=== PATIENT | female | born 1990 | race Caucasian/White ===

== ENCOUNTER 2024-03-19 10:34 | Emergency (ER) | payer OTHER ==
--- NOTE | 2024-03-19 11:29 | RAD REPORT ---
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 Color and spectral Doppler evaluation of the ovaries was performed. COMPARISON: No prior exam. FINDINGS: UTERUS AND CERVIX: The uterus measures 10.5 cm in length. The myometrium is unremarkable. Few nabothi an cysts noted at the cervix. No masses seen The endometrium is normal, 0.4 cm in thickness. No evidence of a gestational sac noted. RIGHT OVARY: Normal The right ovary measures 3.0 x 1.9 x 1.9 cm. Normal color and spectral Doppler evaluation of the right ovary.. LEFT OVARY: Normal The left ovary measures 2.2 x 1.5 x 1.7 cm. Normal color and spectral Doppler evaluation of the left ovary. No suspicious paraovarian or adnexal lesions. FREE FLUID: No free fluid. IMPRESSION: No evidence of an infiltrate uterine or extrauterine . Clinical follow-up and correlation wi th serial beta hCG levels is recommended. No other suspicious pelvic pathology.
--- NOTE | 2024-03-19 11:29 | RAD REPORT ---
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 Color and spectral Doppler evaluation of the ovaries was performed. COMPARISON: No prior exam. FINDINGS: UTERUS AND CERVIX: The uterus measures 10.5 cm in length. The myometrium is unremarkable. Few nabothi an cysts noted at the cervix. No masses seen The endometrium is normal, 0.4 cm in thickness. No evidence of a gestational sac noted. RIGHT OVARY: Normal The right ovary measures 3.0 x 1.9 x 1.9 cm. Normal color and spectral Doppler evaluation of the right ovary.. LEFT OVARY: Normal The left ovary measures 2.2 x 1.5 x 1.7 cm. Normal color and spectral Doppler evaluation of the left ovary. No suspicious paraovarian or adnexal lesions. FREE FLUID: No free fluid. IMPRESSION: No evidence of an infiltrate uterine or extrauterine . Clinical follow-up and correlation wi th serial beta hCG levels is recommended. No other suspicious pelvic pathology.
[2024-03-19 12:03] LABS: Absolute Eosinophils 0.2 K/uL (0-0.5); Absolute Lymphocytes (CBC) 2.2 K/uL (0.7-4.9); Absolute Monocytes 0.5 K/uL (0.1-1.3); Absolute Neutrophil 4.9 K/uL (1.8-8.0); Basophils % 0.6 % (0-1.3); Eosinophils % 2.7 % (0-4.4); Hematocrit 42.3 % (36.0-45.0); Hemoglobin 14.2 g/dL (12.0-15.0); Lymphocytes % 28.3 % (15.3-44.8); MCH 32.2 pg (27.0-35.0); MCHC 33.7 g/dL (32.0-36.0); MCV 95.7 fL (80-100); MPV 10.4 fL (7.6-11.3); Neutrophils % 62.4 % (41.7-73.7); Platelets 209 thou/uL (152-406); RBC Red Blood Cell Count 4.42 M/uL (3.86-4.86); Red Cell Distribution Width 12.5 % (12.1-15.2)
[2024-03-19 12:45] LABS: Specific Gravity 1.013 (1.005-1.030)
[2024-03-19 12:47] LABS: Specific Gravity 1.013 (1.005-1.030); Sqamous Epithelial <5 /HPF (None Seen); Urine Bacteria None Seen /HPF (<20); Urine Bilirubin NEGATIVE (Negative); Urine Blood 3+ (OVER) (Negative); Urine Clarity Extremely Turbid (Clear); Urine Color Light-Yellow (Yellow); Urine Crystals Unidentified Few /HPF (None Seen); Urine Culture Reflex Order NOT NEEDED; Urine Glucose NEGATIVE (Negative); Urine Ketones NEGATIVE (Negative); Urine Microscopic Reflex YN ORDER UMIC; Urine Mucus Slight /HPF (None Seen); Urine Nitrite NEGATIVE (Negative); Urine Protein NEGATIVE (Negative); Urine RBC >50 /HPF (None Seen); Urine Urobilinogen Normal (Normal); Urine WBC <5 /HPF (<5); Urine WBC Clump Rare /HPF (None Seen); Urine Yeast (Budding) Trace /HPF (None Seen)
--- NOTE | 2024-03-19 13:45 | EDPHYS ---
Physician Documentation [facility] Name: Suzi Tripp Age: 33 yrs Sex: Female : 1990 Arrival Date: 03/19/2024 Time: 10:34 Bed 6 Private MD: ED Physician Jose Salguero HPI: 03/19 10:50 This 33 yrs old Female presents to ER via Unassigned with complaints of [id number], rn Vaginal Bleeding, Abdominal Cramping. 10:50 Onset: The symptoms/episode began/occurred 5 day(s) ago. Modifying factors: The rn symptoms are alleviated by nothing, the symptoms are aggravated by nothing. The patient has experienced similar episodes in the past. at 8 weeks , presents with vaginal bleeding and cramps. No trauma. . 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 - Infectious Disease History:: Denies. - Family history:: not pertinent. - Social history:: Smoking status: Patient denies any tobacco usage or history of. - Hospitalizations: : No recent hospitalization is reported. ROS: 10:50 Constitutional: Negative for fever, chills, and weight loss, Cardiovascular: Negative rn for chest pain, palpitations, and edema, Respiratory: Negative for shortness of breath, cough, wheezing, and pleuritic chest pain, Abdomen/GI: + abd cramps Back: Negative for injury and pain, : + vaginal bleeding Exam: 10:50 Constitutional: This is a well developed, well nourished patient who is awake, alert, rn and in no acute distress. Abdomen/GI: soft, non-tender Neuro: Awake and alert, GCS 15 Vital Signs: 12:14 BP 106 / 75; Pulse 67; Resp 16 S; Temp 98.8(O); Weight 84.37 kg (M); Height 5 ft. 0 in. kc6 (R); Pain 0/10; 14:01 BP 118 / 77; Pulse 85; Resp 17 S; Pulse Ox 100% on R/A; kc6 12:14 Body Mass Index 36.33 (84.37 kg, 152.4 cm) 6 12:14 Pain Scale: Adult kc6 MDM: 10:42 Medical Screening Exam initiated rn 13:42 Differential diagnosis: urinary tract infection, Patient most likely with miscarriage rn given photo that she showed me from home that looked like products of conception. Beta-hCG only 7. Ultrasound does not show intrauterine or extrauterine . 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 Data reviewed: vital signs, nurses notes, lab test result(s), radiologic studies, ultrasound, and as a result, I will discharge patient. Counseling: I had a detailed discussion with the patient and/or guardian regarding the historical points, exam findings, and any diagnostic results supporting the discharge/admit diagnosis, lab results, radiology results, the need for outpatient follow up, to return to the emergency department if symptoms worsen or persist or if there are any questions or concerns that arise at home. Special discussion: I discussed with the patient/guardian in detail that at this point there is no indication for admission to the hospital. It is understood, however, that if the symptoms persist or worsen the patient needs to return immediately for re-evaluation. 03/19 10:42 Order name: Abo/rh Typing; Complete Time: 13:07 rn 03/19 10:42 Order name: Basic Metabolic Panel; Complete Time: 13:07 rn 03/19 10:42 Order name: CBC with Diff; Complete Time: 12:15 rn 03/19 10:42 Order name: Test, Urine; Complete Time: 13:07 rn 03/19 10:42 Order name: Quantitative Hcg; Complete Time: 13:07 rn 03/19 10:42 Order name: Urinalysis w/ reflexes; Complete Time: 13:07 rn 03/19 10:42 Order name: US Transvaginal Ob; Complete Time: 11:35 rn 03/19 11:04 Order name: Pelvis Complete; Complete Time: 11:35 EDMS 03/19 10:42 Order name: IV Saline Lock; Complete Time: 11:54 rn 03/19 10:42 Order name: Labs collected and sent; Complete Time: 11:54 rn 03/19 10:42 Order name: NPO; Complete Time: 12:06 rn Administered Medications: No medications were administered Disposition Summary: 03/19/24 13:44 Discharge Ordered Notes: Location: Home rn Problem: new rn Symptoms: have improved rn Condition: Stable rn Diagnosis - Threatened rn Followup: rn - With: Private Physician - When: As needed - Reason: Recheck today's complaints, Re-evaluation by your physician Discharge Instructions: - Discharge Summary Sheet rn - Miscarriage rn - Threatened Miscarriage rn - Vaginal Bleeding During , First Trimester rn Forms: - Medication Reconciliation Form rn - Antibiotic apple turner - Prescription Opioid Use rn - Patient Portal Instructions rn - Leadership Thank You Letter rn - Work release form cm10 Signatures: Dispatcher [employer] EDMS Jose Salguero MD MD rn Lewis, Lynsay RN RN ll1 Mitzy Beth RN RN kc6
--- NOTE | 2024-03-19 13:45 | ER ---
Nurse's Notes [facility] Name: Suzi Tripp Age: 33 yrs Sex: Female : 1990 Arrival Date: 03/19/2024 Time: 10:34 Bed 6 Private MD: Diagnosis: Threatened Presentation: 03/19 11:00 Chief complaint: Patient states: Approximately 8 weeks . G3, P2. Vaginal ll1 bleeding for 5 days. Coronavirus screen: Client denies travel out of the [place] in the last 14 days. At this time, the client does not indicate any symptoms associated with coronavirus-19. Ebola Screen: Patient denies travel to an Ebola-affected area in the 21 days before illness onset. Initial Sepsis Screen: Does the patient meet any 2 criteria? No. Patient's initial sepsis screen is negative. Does the patient have a suspected source of infection? No. Patient's initial sepsis screen is negative. Risk Assessment: Do you want to hurt yourself or someone else? Patient reports no desire to harm self or others. Onset of symptoms was March 15, 2024. 11:00 Method Of Arrival: Ambulatory ll1 11:00 Acuity: PILO 3 ll1 Triage Assessment: 11:00 General: Appears uncomfortable, Behavior is calm, cooperative, appropriate for age. ll1 Pain: Complains of pain in pelvis Quality of pain is described as aching, crampy. : Reports pain in suprapubic area vaginal bleeding that is moderate flow. 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 - Infectious Disease History:: Denies. - Family history:: not pertinent. - Social history:: Smoking status: Patient denies any tobacco usage or history of. - Hospitalizations: : No recent hospitalization is reported. Screenin:16 [facility] ED Fall Risk Assessment (Adult) History of falling in the last 3 months, kc6 including since admission No falls in past 3 months (0 pts) Confusion or Disorientation No (0 pts) Intoxicated or Sedated No (0 pts) Impaired Gait No (0 pts) Mobility Assist Device Used No (0 pt) Altered Elimination No (0 pt) Score/Fall Risk Level 0 - 2 = Low Risk Oriented to surroundings, Maintained a safe environment. Abuse screen: Denies threats or abuse. Denies injuries from another. Nutritional screening: No deficits noted. Tuberculosis screening: No symptoms or risk factors identified. Assessment: 12:17 General: Appears in no apparent distress. comfortable, well groomed, well developed, kc Behavior is calm, cooperative, appropriate for age. Pain: Complains of pain in pelvis Quality of pain is described as crampy, dull. Neuro: Level of Consciousness is awake, alert, obeys commands, Oriented to person, place, time, situation, Appropriate for age. Cardiovascular: Capillary refill < 3 seconds. Respiratory: Airway is patent Trachea midline Respiratory effort is even, unlabored, Respiratory pattern is regular, symmetrical. GI: No signs and/or symptoms were reported involving the gastrointestinal system. : Reports cramping, vaginal bleeding that is bright red, with clots, heavy flow. EENT: No signs and/or symptoms were reported regarding the EENT system. Derm: No signs and/or symptoms reported regarding the dermatologic system. Skin is intact, is healthy with good turgor, Skin is pink, warm \T\ dry. Musculoskeletal: No signs and/or symptoms reported regarding the musculoskeletal system. Circulation, motion, and sensation intact. Capillary refill < 3 seconds, Range of motion: intact in all extremities. 13:17 Reassessment: Patient appears in no apparent distress at this time. No changes from [facility] previously documented assessment. Patient and/or family updated on plan of care and expected duration. Pain level reassessed. Patient is alert, oriented x 3, equal unlabored respirations, skin warm/dry/pink. Vital Signs: 12:14 BP 106 / 75; Pulse 67; Resp 16 S; Temp 98.8(O); Weight 84.37 kg (M); Height 5 ft. 0 in. kc (R); Pain 0/10; 14:01 BP 118 / 77; Pulse 85; Resp 17 S; Pulse Ox 100% on R/A; kc6 12:14 Body Mass Index 36.33 (84.37 kg, 152.4 cm) [facility] 12:14 Pain Scale: Adult kc6 ED Course: 10:41 Patient arrived in ED. mg5 10:42 Jose Salguero MD is Attending Physician. rn 10:50 Patient's name was called from ER lobby. No response. hb 11:01 Triage completed. ll1 11:07 US Transvaginal Ob In Process Unspecified. EDMS 11:08 Pelvis Complete In Process Unspecified. EDMS 12:12 Mitzy Beth, RN is Primary Nurse. kc6 12:16 Patient has correct armband on for positive identification. Bed in low position. Call kc6 light in reach. Side rails up X 1. Pulse ox on. NIBP on. Door closed. Noise minimized. Lights dimmed. Pillow given. 12:16 Inserted saline lock: 20 gauge in left antecubital area, using aseptic technique. Blood kc6 collected. Flushed with 10 mL NS. Patient maintains SpO2 saturation greater than 95% on room air. 12:17 Arm band placed on. kc6 12:39 Test, Urine Sent. kc6 12:39 Urinalysis w/ reflexes Sent. kc6 14:08 Provided Education on: Follow-up instructions. cm10 14:08 No provider procedures requiring assistance completed. IV discontinued, intact, cm10 bleeding controlled, No redness/swelling at site. Pressure dressing applied. Administered Medications: No medications were administered Medication: 14:07 VIS not applicable for this client. cm10 Outcome: 13:44 Discharge ordered by . rn 14:08 Discharged to home ambulatory, cm10 14:08 Condition: good 14:08 Discharge instructions given to patient, Instructed on discharge instructions, follow up and referral plans. Demonstrated understanding of instructions, follow-up care, 14:09 Patient left the ED. cm10 Signatures: Dispatcher [employer] EDMS Jose Salguero MD MD rn Baxter, Heather, RN RN hb Lewis, Lynsay, RN RN ll1 Mitzy Beth RN RN kc6 Martinez, Clarissa, RN RN cm10 Gardner, Madison mg5 Corrections: (The following items were deleted from the chart) 14:08 14:08 Verified cm10 cm10
[2024-03-19 16:13] VITALS: TEMP 98.8
[2024-03-19 16:14] VITALS: BP 118/77; O2SAT 100
== END 2024-03-19 14:09 | disposition home or self-care (01) ==
LOC: ER 10:34
DX: O20.0 Threatened abortion (principal)
CPT/HCPCS: 36415; 76817; 76856; 80048; 81001; 81025; 84702; 85025; 86900; 86901; 99284

== ENCOUNTER 2024-06-29 10:41 | Emergency (ER) | payer OTHER ==
[2024-06-29] MEDS ORDERED: NA CHLORIDE 0.9% 1,000 ML ONE (12:12)
[2024-06-29] MEDS ORDERED: MORPHINE 4 MG/ML SYR ONE (12:12)
[2024-06-29] MEDS ORDERED: ONDANSETRON 4 MG/2 ML VIAL ONE (12:12)
[2024-06-29 12:40] LABS: Specific Gravity 1.023 (1.005-1.030)
[2024-06-29 12:44] LABS: Specific Gravity 1.023 (1.005-1.030); Urine Bacteria None Seen /HPF (<20); Urine Bilirubin NEGATIVE (Negative); Urine Blood 3+ (Negative); Urine Clarity Extremely Turbid (Clear); Urine Color Dark-Brown (Yellow); Urine Culture Reflex Order REFLEXED; Urine Glucose NEGATIVE (Negative); Urine Ketones NEGATIVE (Negative); Urine Microscopic Reflex YN ORDER UMIC; Urine Mucus 4+ /HPF (None Seen); Urine Nitrite NEGATIVE (Negative); Urine Protein 2+ (Negative); Urine RBC >50 /HPF (None Seen); Urine Urobilinogen Normal (Normal); Urine WBC >50 /HPF (<5); Urine WBC Clump Many /HPF (None Seen); Urine pH 5.5 (5.0-7.0)
[2024-06-29 12:46] LABS: Absolute Basophils 0.1 K/uL (0-0.5); Absolute Eosinophils 0.3 K/uL (0-0.5); Absolute Lymphocytes (CBC) 2.1 K/uL (0.7-4.9); Absolute Monocytes 0.7 K/uL (0.1-1.3); Absolute Neutrophil 11.5 K/uL (1.8-8.0); Basophils % 0.6 % (0-1.3); Eosinophils % 1.7 % (0-4.4); Hematocrit 41.9 % (36.0-45.0); Hemoglobin 14.3 g/dL (12.0-15.0); Lymphocytes % 14.4 % (15.3-44.8); MCH 31.9 pg (27.0-35.0); MCHC 34.2 g/dL (32.0-36.0); MCV 93.3 fL (80-100); MPV 10.9 fL (7.6-11.3); Monocytes % 4.7 % (3.3-12.3); Neutrophils % 78.6 % (41.7-73.7); Platelets 223 thou/uL (152-406); RBC Red Blood Cell Count 4.49 M/uL (3.86-4.86); Red Cell Distribution Width 12.4 % (12.1-15.2)
[2024-06-29 12:56] LABS: Albumin 3.7 g/dL (3.4-5.0); Anion Gap 6.9 mEq/L (5.0-15.0); Bilirubin Total 0.9 mg/dL (0.2-1.0); Globulin 3.8 g/dL (2.3-3.5); Potassium 3.9 mEq/L (3.5-5.1); Protein, Total 7.5 g/dL (6.4-8.2)
[2024-06-29] MEDS ORDERED: CIPROFLOXACIN HCL 500 MG TAB ONE (13:26)
[2024-06-29] MEDS ORDERED: CEFTRIAXONE 1000 MG/VIAL ONE (13:26)
--- NOTE | 2024-06-29 13:42 | RAD REPORT ---
EXAMINATION: Pelvis Complete CLINICAL INDICATION: Vaginal bleeding TECHNIQUE: Real-time ultrasonography of the pelvis was performed transabdominally.. Color and spectra l Doppler evaluation of the ovaries was performed. COMPARISON: No prior exam. Findings: The uterus measures 10 x 6 x 6 cm. Endometrial stripe normal thickness. Punctate calcification is pre sent within the myometrium. A fibroid is not seen. Nabothian cysts are present within the cervix. Right ovary normal in size and echotexture. Left ovary normal in size and echotexture. Ovaries demonstrate blood flow. Right and left adnexa unremarkable No significant free fluid IMPRESSION: No significant abnormalities displayed
--- NOTE | 2024-06-29 13:42 | RAD REPORT ---
EXAMINATION: Transvaginal Study Probe CLINICAL INDICATION: Vaginal bleeding TECHNIQUE: Real-time ultrasonography of the pelvis was performed transvaginally. Color and spectral D oppler evaluation of the ovaries was performed. COMPARISON: No prior exam. FINDINGS: The uterus measures 10 x 6 x 6 cm. Endometrial stripe normal thickness. Punctate calcification is pre sent within the myometrium. A fibroid is not seen. Nabothian cysts are present within the cervix. Right ovary normal in size and echotexture. Left ovary normal in size and echotexture. Right and left adnexa unremarkable No significant free fluid IMPRESSION: No significant abnormalities displayed
--- NOTE | 2024-06-29 14:03 | RAD REPORT ---
EXAMINATION: CT ABDOMEN AND PELVIS WITH CONTRAST CLINICAL INDICATION: Abdominal pain TECHNIQUE: CT abdomen and pelvis was performed, after the administration of 100 cc Isovue-300.. Sagit luz and coronal reconstructions were obtained. One or more of the following dose reduction techniques were used: Automated exposure control, adjustment of the mA and kV according to patient si ze, and iterative reconstruction. Unless otherwise specified, incidental findings do not require dedicated imaging follow-up. [id number]. Oral contrast was not given which limits evaluation of bowel and appendix. COMPARISON: .None FINDINGS: Small hepatic cyst. Borderline fatty infiltration liver. The spleen, pancreas, adrenals and kidneys appear unremarkable No evidence of diverticulitis. Normal appendix. 1.9 cm left ovarian follicle. No significant free fluid. Small umbilical hernia contains fat : IMPRESSION: No acute abnormality displayed
--- NOTE | 2024-06-29 14:39 | EDPHYS ---
Physician Documentation [facility] Name: Suzi Tripp Age: 34 yrs Sex: Female : 1990 Arrival Date: 06/29/2024 Time: 10:41 Bed 19 Private MD: RYAN Physician Yogi Bragg HPI: 06/29 13:27 This 34 yrs old Female presents to ER via Ambulatory with complaints of hang Abdominal Pain, Vaginal Bleeding. 13:29 The patient presents with flank pain, on the left, pelvic pain, the pain radiates to hang the left lower quadrant, urinary symptoms, frequency, hematuria, urgency, vaginal bleeding that is moderate. Onset: The symptoms/episode began/occurred 2 day(s) ago. Modifying factors: The symptoms are alleviated by nothing, the symptoms are aggravated by nothing. Associated signs and symptoms: Pertinent positives: dysuria, vaginal bleeding. Severity of symptoms: At their worst the symptoms were moderate, in the emergency department the symptoms are unchanged. The patient is sexually active, reportedly has a single partner. The patient has not experienced similar symptoms in the past. Historical: - Allergies: 11:10 No Known Allergies; hb - Home Meds: 11:10 None [Active]; hb - PMHx: 11:10 None; hb - PSHx: 11:10 section; hb - Immunization history:: Adult Immunizations up to date. - Infectious Disease History:: Denies. - Social history:: Smoking status: Patient reports the use of cigarette tobacco products. - Family history:: not pertinent. ROS: 13:29 Constitutional: Negative for fever, chills, and weight loss, Eyes: Negative for injury, hang pain, redness, and discharge, ENT: Negative for injury, pain, and discharge, Neck: Negative for injury, pain, and swelling, Cardiovascular: Negative for chest pain, palpitations, and edema, Respiratory: Negative for shortness of breath, cough, wheezing, and pleuritic chest pain, Back: Negative for injury and pain, MS/Extremity: Negative for injury and deformity, Skin: Negative for injury, rash, and discoloration, Neuro: Negative for headache, weakness, numbness, tingling, and seizure, Psych: Negative for depression, anxiety, suicide ideation, homicidal ideation, and hallucinations, Allergy/Immunology: Negative for hives, rash, and allergies, Endocrine: Negative for neck swelling, polydipsia, polyuria, polyphagia, and marked weight changes, Hematologic/Lymphatic: Negative for swollen nodes, abnormal bleeding, and unusual bruising, 13:29 Abdomen/GI: Positive for abdominal pain, of the left lower quadrant, 13:29 : Positive for vaginal bleeding, Exam: 13:29 Constitutional: This is a well developed, well nourished patient who is awake, alert, hang and in no acute distress. Head/Face: Normocephalic, atraumatic. Eyes: Pupils equal round and reactive to light, extra-ocular motions intact. Lids and lashes normal. Conjunctiva and sclera are non-icteric and not injected. Cornea within normal limits. Periorbital areas with no swelling, redness, or edema. ENT: Nares patent. No nasal discharge, no septal abnormalities noted. Tympanic membranes are normal and external auditory canals are clear. Oropharynx with no redness, swelling, or masses, exudates, or evidence of obstruction, uvula midline. Mucous membranes moist. Neck: Trachea midline, no thyromegaly or masses palpated, and no cervical lymphadenopathy. Supple, full range of motion without nuchal rigidity, or vertebral point tenderness. No Meningismus. Chest/axilla: Normal chest wall appearance and motion. Nontender with no deformity. No lesions are appreciated. Cardiovascular: Regular rate and rhythm with a normal S1 and S2. No gallops, murmurs, or rubs. Normal PMI, no JVD. No pulse deficits. Respiratory: Lungs have equal breath sounds bilaterally, clear to auscultation and percussion. No rales, rhonchi or wheezes noted. No increased work of breathing, no retractions or nasal flaring. Back: No spinal tenderness. No costovertebral tenderness. Full range of motion. Skin: Warm, dry with normal turgor. Normal color with no rashes, no lesions, and no evidence of cellulitis. MS/ Extremity: Pulses equal, no cyanosis. Neurovascular intact. Full, normal range of motion., bilateral aka Neuro: Awake and alert, GCS 15, oriented to person, place, time, and situation. Cranial nerves II-XII grossly intact. Motor strength 5/5 in all extremities. Sensory grossly intact. Cerebellar exam normal. Normal gait. Psych: Awake, alert, with orientation to person, place and time. Behavior, mood, and affect are within normal limits. 13:29 Abdomen/GI: Inspection: abdomen appears normal, Bowel sounds: normal, Palpation: moderate abdominal tenderness, in the left lower quadrant, Liver: no appreciated palpable abnormalities, Hernia: not appreciated, Vital Signs: 11:07 BP 115 / 86; Pulse 83; Resp 16; Temp 98.3; Pulse Ox 100% on R/A; Weight 85.73 kg; hb Height 5 ft. 0 in. ; Pain 8/10; 15:00 BP 114 / 86; Pulse 82; Resp 16; Pulse Ox 95% on R/A; kc6 11:07 Body Mass Index 36.91 (85.73 kg, 152.4 cm) hb 11:07 Pain Scale: Adult hb MDM: 10:51 Medical Screening Exam initiated hang 13:33 Differential diagnosis: dysmenorrhea, endometriosis, malignancy, menorrhea, nonspecific hang abdominal pain, uterine fibroids, urinary tract infection. Data reviewed: vital signs, nurses notes, lab test result(s), radiologic studies, CT scan, ultrasound. Consideration of Admission/Observation Escalation of care including admission/observation considered. I considered the following discharge prescriptions or medication management in the emergency department Medications were administered in the Emergency Department. See MAR. Independent interpretation of the following test(s) in the Emergency Department CT Scan: My interpretation is ct abd/pelvis. Test considered but Not performed: MRI: no mri pelvis. Historians other than the Patient: Spouse/Significant Other: well informed. Care significantly affected by the following chronic conditions: none. 06/29 10:51 Order name: CBC with Diff; Complete [facility]: 13:20 [facility] 06/29 10:51 Order name: CMP; Complete Time: 13:20 [facility] 06/29 10:51 Order name: Lipase; Complete Time: 13:20 [facility] 06/29 10:51 Order name: Test, Urine; Complete Time: 13:20 [facility] 06/29 10:51 Order name: Urinalysis w/ reflexes; Complete Time: 13:20 [facility] 06/29 12:48 Order name: Urine Culture [facility] 06/29 12:11 Order name: US Transvaginal Study (Probe); Complete Time: 14:38 [facility] 06/29 12:19 Order name: Pelvis Complete; Complete Time: 14:38 [facility] 06/29 13:29 Order name: Abdomen ; Complete Time: 14:38 [facility] 06/29 10:51 Order name: IV Saline Lock; Complete Time: 12:36 hang 06/29 10:51 Order name: Labs collected and sent; Complete Time: 12:36 hang Administered Medications: 12:36 Drug: Ondansetron IVP 4 mg IVP once; over 2 minutes Route: IVP; Site: right antecubital;6 13:38 Follow up: Response: No adverse reaction [facility] 12:36 Drug: morphine IVP or IV 4 mg IVP once over 4 mins Route: IVP; Infused Over: 4 mins; 6 Site: right antecubital; 13:37 Follow up: Response: No adverse reaction; Pain is decreased; RASS: Alert and Calm (0) [facility] 12:36 Drug: NS 0.9% IV 1000 ml IV at 1 bolus Per protocol; to be given as a bolus over 60 kc6 minutes Route: IV; Rate: 1 bolus; Site: right antecubital; 15:29 Follow up: Response: No adverse reaction; IV Status: Completed infusion; IV Intake: db 1000ml 13:32 Drug: Rocephin IV 1 grams IV at per protocol once; Given slow IV push per pharmacy kc6 instructions Route: IV; Rate: per protocol; Site: right antecubital; 15:29 Follow up: Response: No adverse reaction; IV Status: Completed infusion db 13:32 Drug: Ciprofloxacin PO 500 mg PO once Route: PO; [facility] 15:29 Follow up: Response: No adverse reaction db 15:05 Drug: Cefdinir PO 300 mg PO once Route: PO; db 15:29 Follow up: Response: No adverse reaction db Disposition Summary: 06/29/24 14:39 Discharge Ordered Notes: Location: Home hang Problem: new hang Symptoms: have improved hang Condition: Stable hang Diagnosis - Abnormal uterine and vaginal bleeding, unspecified hang - Dysmenorrhea, unspecified hang - UTI/ Urinary tract infection, site not specified hang - Pelvic and perineal pain hang Followup: hang - With: Private Physician - When: 2 - 3 days - Reason: Recheck today's complaints, Continuance of care, Re-evaluation by your physician Followup: hang - With: Hien Bell MD - When: 2 - 3 days - Reason: Recheck today's complaints, Re-evaluation by your physician Discharge Instructions: - Discharge Summary Sheet hang - Abnormal Uterine Bleeding hang - Dysmenorrhea hang - Dysuria hang - Pelvic Pain, Female hang - Urinary Tract Infection, Adult hang - Urinary Tract Infection, Adult, [id number] Forms: - Medication Reconciliation Form hang - Antibiotic Education hang - Prescription Opioid Use hang - Patient Portal Instructions [facility] - Leadership Thank You Letter [facility] Prescriptions: - cefdinir 300 mg Oral capsule - take 1 capsule ORAL route 2 times per day for 5 days; 10 capsule; Refills: 0, [facility] Product Selection Permitted - Pyridium 200 mg Oral Tablet - take 1 tablet ORAL route every 8 hours for 3 days; 9 tablet; Refills: 0, [facility] Product Selection Permitted - Cipro 500 mg Oral Tablet - take 1 tablet ORAL route every 12 hours for 7 days; 14 tablet; Refills: 0, [facility] Product Selection Permitted - Diclofenac Sodium 75 mg Oral tablet, delayed release (enteric coated) - take 1 tablet ORAL route 2 times per day; 20 tablet; Refills: 0, Product [facility] Selection Permitted Signatures: Dispatcher [employer] Yogi Culver MD MD cha Baxter, Heather, RN RN Mitzy Beth RN RN kc6 Kamilla Huang RN RN db Corrections: (The following items were deleted from the chart) 13:21 13:21 Clem Protocol+CT.RAD.BRZ ordered. ELINA ANTOINE
--- NOTE | 2024-06-29 14:39 | ER ---
Nurse's Notes [facility] Name: Suzi Tripp Age: 34 yrs Sex: Female : 1990 Arrival Date: 06/29/2024 Time: 10:41 Bed 19 Private MD: Diagnosis: Abnormal uterine and vaginal bleeding, unspecified;Dysmenorrhea, unspecified;UTI/ Urinary tract infection, site not specified;Pelvic and perineal pain Presentation: 06/29 11:07 Chief complaint: Severe LLQ pain that started today, started menstrual cycle yesterday, hb LMP 04/22, miscarriage in February. Coronavirus screen: At this time, the client does not indicate any symptoms associated with coronavirus-19. Ebola Screen: No symptoms or risks identified at this time. Initial Sepsis Screen: Does the patient meet any 2 criteria? No. Patient's initial sepsis screen is negative. Does the patient have a suspected source of infection? No. Patient's initial sepsis screen is negative. Risk Assessment: Do you want to hurt yourself or someone else? Patient reports no desire to harm self or others. Onset of symptoms was June 28, 2024. 11:07 Method Of Arrival: Ambulatory hb 11:07 Acuity: PILO 3 hb Historical: - Allergies: 11:10 No Known Allergies; hb - Home Meds: 11:10 None [Active]; hb - PMHx: 11:10 None; hb - PSHx: 11:10 section; hb - Immunization history:: Adult Immunizations up to date. - Infectious Disease History:: Denies. - Social history:: Smoking status: Patient reports the use of cigarette tobacco products. - Family history:: not pertinent. Screenin:36 [facility] ED Fall Risk Assessment (Adult) History of falling in the last 3 months, kc6 including since admission No falls in past 3 months (0 pts) Confusion or Disorientation No (0 pts) Intoxicated or Sedated No (0 pts) Impaired Gait No (0 pts) Mobility Assist Device Used No (0 pt) Altered Elimination No (0 pt) Score/Fall Risk Level 0 - 2 = Low Risk Oriented to surroundings, Maintained a safe environment, Educated pt \T\ family on fall prevention, incl call for assistance when getting out of bed. Abuse screen: Denies threats or abuse. Denies injuries from another. Nutritional screening: No deficits noted. Tuberculosis screening: No symptoms or risk factors identified. Assessment: 12:37 General: Appears in no apparent distress. uncomfortable, well groomed, well developed, kc6 Behavior is calm, cooperative, appropriate for age. Pain: Complains of pain in pelvis Pain does not radiate. Quality of pain is described as crampy, dull. Neuro: Level of Consciousness is awake, alert, obeys commands, Oriented to person, place, time, situation, Appropriate for age. Cardiovascular: Capillary refill < 3 seconds. Respiratory: Airway is patent Trachea midline Respiratory effort is even, unlabored, Respiratory pattern is regular, symmetrical. GI: Reports lower abdominal pain, cramping. : Urine is blood tinged, Reports vaginal bleeding that is bright red, moderate flow. EENT: No signs and/or symptoms were reported regarding the EENT system. Derm: No signs and/or symptoms reported regarding the dermatologic system. Skin is intact, is healthy with good turgor, Skin is pink, warm \T\ dry. Musculoskeletal: No signs and/or symptoms reported regarding the musculoskeletal system. Circulation, motion, and sensation intact. Range of motion: intact in all extremities. 13:37 Reassessment: Patient appears in no apparent distress at this time. No changes from kc6 previously documented assessment. Patient and/or family updated on plan of care and expected duration. Pain level reassessed. Patient is alert, oriented x 3, equal unlabored respirations, skin warm/dry/pink. Patient states feeling better. Patient states symptoms have improved. 15:31 Reassessment: Patient appears in no apparent distress at this time. Patient and/or db family updated on plan of care and expected duration. Pain level reassessed. Patient is alert, oriented x 3, equal unlabored respirations, skin warm/dry/pink. Patient states feeling better. Vital Signs: 11:07 BP 115 / 86; Pulse 83; Resp 16; Temp 98.3; Pulse Ox 100% on R/A; Weight 85.73 kg; hb Height 5 ft. 0 in. ; Pain 8/10; 15:00 BP 114 / 86; Pulse 82; Resp 16; Pulse Ox 95% on R/A; kc6 11:07 Body Mass Index 36.91 (85.73 kg, 152.4 cm) hb 11:07 Pain Scale: Adult hb ED Course: 10:44 Patient arrived in ED. im 10:51 Yogi Bragg MD is Attending Physician. hang 11:10 Triage completed. hb 11:10 Arm band placed on. hb 12:14 Mitzy Beth, RN is Primary Nurse. kc6 12:36 Patient has correct armband on for positive identification. Bed in low position. Call kc6 light in reach. Side rails up X 1. Adult w/ patient. Pulse ox on. NIBP on. Door closed. Noise minimized. Lights dimmed. Warm blanket given. Pillow given. Verbal reassurance given. 12:36 Inserted saline lock: 20 gauge in right antecubital area, using aseptic technique. kc6 Blood collected. Flushed with 10 mL NS. Patient maintains SpO2 saturation greater than 95% on room air. 13:10 US Transvaginal Study (Probe) In Process Unspecified. EDMS 13:10 Pelvis Complete In Process Unspecified. EDMS 13:54 Abdomen In Process Unspecified. EDMS 14:39 Hien Bell MD is Referral Physician. hang 15:31 Provided Education on: DISCHARGE AND FOLLOWUP. db 15:31 No provider procedures requiring assistance completed. IV discontinued, intact, db bleeding controlled, No redness/swelling at site. Administered Medications: 12:36 Drug: Ondansetron IVP 4 mg IVP once; over 2 minutes Route: IVP; Site: right antecubital;kc6 13:38 Follow up: Response: No adverse reaction kc6 12:36 Drug: morphine IVP or IV 4 mg IVP once over 4 mins Route: IVP; Infused Over: 4 mins; kc6 Site: right antecubital; 13:37 Follow up: Response: No adverse reaction; Pain is decreased; RASS: Alert and Calm (0) kc6 12:36 Drug: NS 0.9% IV 1000 ml IV at 1 bolus Per protocol; to be given as a bolus over 60 kc6 minutes Route: IV; Rate: 1 bolus; Site: right antecubital; 15:29 Follow up: Response: No adverse reaction; IV Status: Completed infusion; IV Intake: db 1000ml 13:32 Drug: Rocephin IV 1 grams IV at per protocol once; Given slow IV push per pharmacy kc6 instructions Route: IV; Rate: per protocol; Site: right antecubital; 15:29 Follow up: Response: No adverse reaction; IV Status: Completed infusion db 13:32 Drug: Ciprofloxacin PO 500 mg PO once Route: PO; kc6 15:29 Follow up: Response: No adverse reaction db 15:05 Drug: Cefdinir PO 300 mg PO once Route: PO; db 15:29 Follow up: Response: No adverse reaction db Medication: 15:31 VIS not applicable for this client. db Intake: 15:29 IV: 1000ml; Total: 1000ml. db Outcome: 14:39 Discharge ordered by MD. mauricio 15:31 Discharged to home ambulatory, with family, db 15:31 Condition: stable 15:31 Discharge instructions given to patient, Instructed on discharge instructions, follow up and referral plans. Prescriptions given X 4, 15:32 Patient left the ED. db Signatures: Dispatcher [employer] Yogi Culver MD MD cha Baxter, Heather, RN Mitzy Harrington RN RN kc6 Kamilla Huang RN RN Isabel Tobias
[2024-06-29] MEDS ORDERED: CEFDINIR 300 MG CAP PO ONE (15:21)
[2024-06-29 15:38] VITALS: TEMP 98.3
[2024-06-29 15:39] VITALS: BP 114/86; O2SAT 95
== END 2024-06-29 15:32 | disposition home or self-care (01) ==
LOC: ER 10:41
DX: N39.0 Urinary tract infection, site not specified (principal); N94.6 Dysmenorrhea, unspecified; Z72.0 Tobacco use
CPT/HCPCS: 96365; 96361; 87088; 85025; 81001; 87086; 36415; 81025; 87077; 87186; 83690; 80053; 74177; 76856; 76830; 96375; 99284; 96366; Q9967; J2405; J7030; J0696

== ENCOUNTER 2024-09-03 18:10 | Emergency (ER) | payer OTHER ==
[2024-09-03 20:40] LABS: Specific Gravity > 1.030 (1.005-1.030); Sqamous Epithelial <5 /HPF (None Seen); Urine Bacteria None Seen /HPF (<20); Urine Bilirubin NEGATIVE (Negative); Urine Blood 3+ (OVER) (Negative); Urine Clarity Extremely Turbid (Clear); Urine Color Yellow (Yellow); Urine Crystals Unidentified Few /HPF (None Seen); Urine Culture Reflex Order REFLEXED; Urine Glucose TRACE (Negative); Urine Ketones 1+ (Negative); Urine Microscopic Reflex YN ORDER UMIC; Urine Mucus 4+ /HPF (None Seen); Urine Nitrite NEGATIVE (Negative); Urine Protein 1+ (Negative); Urine RBC >50 /HPF (None Seen); Urine Urobilinogen 1+ (Normal); Urine WBC 20-50 /HPF (<5); Urine pH 5.5 (5.0-7.0)
--- NOTE | 2024-09-03 21:02 | RAD REPORT ---
EXAMINATION: US Transvaginal OB COMPARISON: None. HISTORY: [facility] MAIN ABD CRAMPING, Bed Name: IW3 TECHNIQUE: Real-time ultrasound was performed through the pelvis. A transvaginal as well as transabdo sarthak scan was performed. FINDINGS: Uterus measures 10.2 cm in length. Endometrium measures 1.3 cm in thickness. No evidence of an intrauterine . Multiple small nabothian cysts. No other abnormal collections. Both ovaries are visualized and appear unremarkable. Incidentally noted anterior wall subserosal 1.7 cm fibroid. There is no free fluid in the cul-de-sac. IMPRESSION: No intrauterine or extrauterine identified. Correlation with beta hCG levels, and close cli nical follow-up recommended. Incidentally noted small subserosal anterior wall fibroid measuring 1.7 cm.
[2024-09-03 21:22] LABS: Absolute Basophils 0.1 K/uL (0-0.5); Absolute Eosinophils 0.3 K/uL (0-0.5); Absolute Lymphocytes (CBC) 2.9 K/uL (0.7-4.9); Absolute Monocytes 0.9 K/uL (0.1-1.3); Absolute Neutrophil 7.8 K/uL (1.8-8.0); Basophils % 0.5 % (0-1.3); Eosinophils % 2.4 % (0-4.4); Hematocrit 39.2 % (36.0-45.0); Hemoglobin 13.8 g/dL (12.0-15.0); Lymphocytes % 24.1 % (15.3-44.8); MCH 32.6 pg (27.0-35.0); MCHC 35.3 g/dL (32.0-36.0); MCV 92.5 fL (80-100); MPV 11.2 fL (7.6-11.3); Monocytes % 7.6 % (3.3-12.3); Neutrophils % 65.4 % (41.7-73.7); Nucleated Red Blood Cells % 0.1 % (0-0); Platelets 197 thou/uL (152-406); RBC Red Blood Cell Count 4.23 M/uL (3.86-4.86); Red Cell Distribution Width 13.1 % (12.1-15.2)
[2024-09-03 21:45] LABS: Anion Gap 6.4 mEq/L (5.0-15.0); Potassium 3.4 mEq/L (3.5-5.1)
[2024-09-03 21:55] LABS: Specific Gravity > 1.030 (1.005-1.030)
--- NOTE | 2024-09-03 22:51 | ER ---
Nurse's Notes [facility] Name: Suzi Tripp Age: 34 yrs Sex: Female : 1990 Arrival Date: 09/03/2024 Time: 18:10 Bed 17 Private MD: Diagnosis: Threatened Presentation: 09/03 18:55 Chief complaint: Patient states: 9 weeks and started having vaginal bleeding me1 this morning. lower abdominal cramping similar to a period. Bleeding is bright red and a moderate amount. Coronavirus screen: Vaccine status: Patient reports being unvaccinated. Ebola Screen: No symptoms or risks identified at this time. Initial Sepsis Screen: Does the patient meet any 2 criteria? No. Patient's initial sepsis screen is negative. Does the patient have a suspected source of infection? No. Patient's initial sepsis screen is negative. Risk Assessment: Do you want to hurt yourself or someone else? Patient reports no desire to harm self or others. Onset of symptoms was September 03, 2024 at 09:45. 18:55 Method Of Arrival: Ambulatory il1 18:55 Acuity: PILO 3 me1 Triage Assessment: 18:58 General: Appears in no apparent distress. Behavior is calm, cooperative, appropriate me1 for age, quiet. Pain: Complains of pain in right lower quadrant and left lower quadrant Pain does not radiate. Pain currently is 3 out of 10 on a pain scale. Quality of pain is described as crampy, Pain began gradually, Is continuous. EENT: No signs and/or symptoms were reported regarding the EENT system. Neuro: Level of Consciousness is awake, alert, obeys commands, Oriented to person, place, time, situation, Appropriate for age. Cardiovascular: Patient's skin is warm and dry. Respiratory: Airway is patent Respiratory effort is even, unlabored, Respiratory pattern is regular, symmetrical. GI: No signs and/or symptoms were reported involving the gastrointestinal system. : Reports vaginal bleeding that is bright red, moderate flow, since 0945 today. Derm: Skin is intact, is healthy with good turgor, Skin is pink, warm \T\ dry. Musculoskeletal: No signs and/or symptoms reported regarding the musculoskeletal system. [employer]: 18:57 LMP 06/28/2024, unknown me1 20:29 4, Full Term 2, 1, Living 2, LMP 06/28/2024, Verified, EDC sb4 04/04/2025, Gestational age from LMP: 9 weeks 5 days Historical: - Allergies: 18:57 No Known Allergies; me1 - Home Meds: 18:57 None [Active]; me1 - PMHx: 18:57 None; me1 - PSHx: 18:57 section; me1 - Immunization history:: Adult Immunizations up to date. - Infectious Disease History:: Denies. - Social history:: Smoking status: Patient/guardian denies using tobacco, but has a distant history of tobacco abuse. Screenin:00 [facility] ED Fall Risk Assessment (Adult) History of falling in the last 3 months, jj7 including since admission No falls in past 3 months (0 pts) Confusion or Disorientation No (0 pts) Intoxicated or Sedated No (0 pts) Impaired Gait No (0 pts) Mobility Assist Device Used No (0 pt) Altered Elimination No (0 pt) Score/Fall Risk Level 0 - 2 = Low Risk Oriented to surroundings, Maintained a safe environment, Educated pt \T\ family on fall prevention, incl call for assistance when getting out of bed, Assessed \T\ reinforced patient's understanding of fall precautions. Abuse screen: Denies threats or abuse. Nutritional screening: No deficits noted. Tuberculosis screening: No symptoms or risk factors identified. Assessment: 22:00 Obstetrical Assessment: General assessment: awake and alert, skin warm and dry, jj7 respirations even and unlabored, Patient reports abdominal cramping. Reassessment: ASSUMED CARE OF PT. PT SITTING IN BED. NO DISTRESS NOTED. CALL LAMBERT IN REACH. General: Appears in no apparent distress. comfortable, Behavior is calm, cooperative, appropriate for age. : Reports vaginal bleeding that is bright red, with clots, moderate flow. Vital Signs: 18:55 BP 119 / 73; Pulse 84; Resp 16; Temp 98.3; Pulse Ox 99% ; Weight 85.28 kg; Height 5 ft. me1 0 in. ; Pain 3/10; 22:00 BP 117 / 74; Pulse 93; Resp 20; Pulse Ox 100% ; jj7 23:00 BP 112 / 76; Pulse 77; Resp 18; Temp 97.8; Pulse Ox 98% ; jj7 18:55 Body Mass Index 36.72 (85.28 kg, 152.4 cm) me1 18:55 Pain Scale: Adult il1 ED Course: 18:22 Patient arrived in ED. cj3 18:41 [facility] sb[facility] 18:41 Yogi Bragg MD is Attending Physician. sb4 18:57 Triage completed. me1 18:57 Arm band placed on Patient placed in waiting room. me1 20:28 Transvaginal OB In Process Unspecified. EDMS 20:44 Initial lab(s) drawn, by me, sent to lab. Inserted saline lock: 20 gauge in left vk antecubital area, using aseptic technique. Blood collected. Flushed with 10 mL NS. 20:45 Urine collected: clean catch specimen, clear. vk 21:37 Meena Fitzgerald, RN is Primary Nurse. jj7 22:00 Patient has correct armband on for positive identification. Placed in gown. Bed in low jj7 position. Call light in reach. Provided Education on: USE OF CALL LAMBERT. Warm blanket given. 23:00 Assist provider with pelvic exam: Set up pelvic tray. Performed by Oly Sullivan PA-C jj7 Patient tolerated well. 23:19 IV discontinued, intact, bleeding controlled, No redness/swelling at site. Pressure jj7 dressing applied. Administered Medications: No medications were administered Medication: 22:00 VIS not applicable for this client. jj7 Outcome: 22:50 Discharge ordered by . sb4 23:19 Discharged to home ambulatory, jj7 23:19 Condition: good 23:19 Discharge instructions given to patient, Instructed on discharge instructions, follow up and referral plans. Demonstrated understanding of instructions, follow-up care, 23:20 Patient left the ED. jj7 Signatures: Dispatcher [employer] Meena Causey RN RN jj7 Brown, Sophia, PA-C PA-C sbSandy Cai RN RN il1 Nadine Mtz Celeste cj3 Corrections: (The following items were deleted from the chart) 23:33 23:32 Patient left the ED. jj7 jj7
--- NOTE | 2024-09-03 22:51 | EDPHYS ---
Physician Documentation [facility] Name: Suzi Tripp Age: 34 yrs Sex: Female : 1990 Arrival Date: 09/03/2024 Time: 18:10 Bed 17 Private MD: RYAN Physician Yogi Bragg HPI: 09/03 20:29 This 34 yrs old Female presents to ER via Ambulatory with complaints of Vaginal sb4 Bleeding, + Preg <12wks. 20:29 The patient presents to the emergency department with abdominal pain, vaginal bleeding, sb4 that is moderate, with no clots. The estimated gestational age is 9 weeks. course: care: at a clinic, Leakage of Fluid: none appreciated, Ultrasound: the patient has not had an ultrasound, Risk/complications: no obvious risks or complications are appreciated. Previous pregnancies: in previous pregnancies patient has had , no complications. Associated signs and symptoms: The patient has no apparent associated signs or symptoms. The patient has not experienced similar symptoms in the past. The patient has been recently seen by a physician: the patient's primary care provider. 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 - Infectious Disease History:: Denies. - Social history:: Smoking status: Patient/guardian denies using tobacco, but has a distant history of tobacco abuse. ROS: 20:29 Constitutional: Negative for fever, chills, and weight loss, sb4 20:29 : Positive for pelvic pain, vaginal bleeding, 20:29 All other systems are negative, Exam: 20:31 Head/Face: Normocephalic, atraumatic. Eyes: Extra-ocular motions intact. Periorbital sb4 areas with no swelling, redness, or edema. ENT: Mucous membranes moist. Respiratory: No increased work of breathing, no retractions or nasal flaring. Skin: Warm, dry with normal turgor. Normal color with no rashes, no lesions, and no evidence of cellulitis. 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 me1 0 in. ; Pain 3/10; 22:00 BP 117 / 74; Pulse 93; Resp 20; Pulse Ox 100% ; jj7 23:00 BP 112 / 76; Pulse 77; Resp 18; Temp 97.8; Pulse Ox 98% ; jj7 18:55 Body Mass Index 36.72 (85.28 kg, 152.4 cm) me1 18:55 Pain Scale: Adult me1 MDM: 18:43 Medical Screening Exam initiated sb4 22:53 Data reviewed: vital signs, nurses notes, lab test result(s), radiologic studies, and sb4 as a result, I will discharge patient. Counseling: I had a detailed discussion with the patient and/or guardian regarding the historical points, exam findings, and any diagnostic results supporting the discharge/admit diagnosis, lab results, radiology results, the need for outpatient follow up, for definitive care, to return to the emergency department if symptoms worsen or persist or if there are any questions or concerns that arise at home. 09/03 20:01 Order name: UA Rfx Christiano Cult if indicated; Complete Time: 20:54 sb4 09/03 20:54 Order name: Urine Culture EDMS 09/03 21:13 Order name: Basic Metabolic Panel; Complete Time: 21:45 EDMS 09/03 21:13 Order name: HCG, Quantitative; Complete Time: 21:45 EDMS 09/03 21:13 Order name: CBC with Automated Diff; Complete Time: 21:23 EDMS 09/03 21:13 Order name: ABO/RH typing; Complete Time: 22:54 EDMS 09/03 21:14 Order name: Test, Urine; Complete Time: 21:59 EDMS 09/03 20:28 Order name: Transvaginal OB; Complete Time: 21:03 EDMS 09/03 19:35 Order name: IV Saline Lock; Complete Time: 20:43 sb4 09/03 19:35 Order name: Labs collected and sent; Complete Time: 20:43 sb4 09/03 21:23 Order name: Pelvic Exam Setup; Complete Time: 23:32 sb4 Administered Medications: No medications were administered Disposition Summary: 09/03/24 22:50 Discharge Ordered Notes: Location: Home sb4 Problem: new sb4 Symptoms: have improved sb4 Condition: Stable sb4 Diagnosis - Threatened sb4 Followup: sb4 - With: Private Physician - When: 48 Hours - Reason: Repeat Beta-HCG (48 Hours) Discharge Instructions: - Discharge Summary Sheet sb4 - Uterine Fibroids sb4 - Threatened Miscarriage sb4 - Recurrent Loss sb4 Forms: - Work release form sb4 - Patient Portal Instructions sb4 - Leadership Thank You Letter sb4 Addendum: 09/05/2024 16:27 Co-signature as Attending Physician, Yogi Bragg MD I agree with the assessment and c ayala plan of care. Signatures: Dispatcher [employer] Yogi Culver MD MD cha Brown, Sophia, PA-C PA-C sb4 Sandy Carpenter, RN RN me1 Corrections: (The following items were deleted from the chart) 09/03 20:28 19:35 1st Trimest Single 1st Fetus+US.RAD.BRZ ordered. [facility]
[2024-09-04 00:26] VITALS: BP 112/76; TEMP 97.8; O2SAT 98
== END 2024-09-03 23:32 | disposition home or self-care (01) ==
LOC: ER 18:10
DX: O20.0 Threatened abortion (principal); Z3A.09 9 weeks gestation of pregnancy
CPT/HCPCS: 36415; 76817; 80048; 81001; 81025; 84702; 85025; 86900; 86901; 87086; 87088; 99284